=== PATIENT | male | born 1980 | race Caucasian/White ===

== ENCOUNTER → 2016-06-04 | Day surgery (SDC) | payer BC | END | disposition home or self-care (01) | LOC: ER 12:47 → SDC 14:42 | DX: K35.80 Unspecified acute appendicitis (principal); I10 Essential (primary) hypertension; Z88.0 Allergy status to penicillin; Z79.899 Other long term (current) drug therapy; Z98.890 Other specified postprocedural states | CPT/HCPCS: 36415; 96365; 96375; J1885; J2704; J2765; Q9967 ==